=== PATIENT | male | born 1955 | race Caucasian/White ===

== ENCOUNTER 2018-04-23 09:44 | Inpatient (IN) | payer BC ==
[2018-04-13 11:41] VITALS: BMI 33.0
--- NOTE | 2018-04-13 15:53 | PAT Medication Instructions ---
Service Date Apr 13, 2018. Current Home Medication List Alprazolam (Xanax), 0.5 MG PO Q6H Calcium W/ Magnesium (Calcium/Magnesium), 1 TAB PO QAM Cholecalciferol (Vitamin D), 1 TAB PO QAM Famotidine (Pepcid), 20 MG PO BID Hydrochlorothiazide (Hydrochlorothiazide), 1 TAB PO QAM Latanoprost (Xalatan 0.005% Oph Bebe), 1 DROPS OPL HS Lisinopril (Zestril), 1 TAB PO QAM Netarsudil Dimesylate (Rhopressa), 2.5 ML OPL QAM Sertraline (Zoloft), 1 TAB PO HS Zaleplon (Sonata), 1 CAP PO HS Medication Instructions For Your Scheduled Surgery - Hold the following medications the morning of surgery: Calcium W/ Magnesium (Calcium/Magnesium), 1 TAB PO QAM Cholecalciferol (Vitamin D), 1 TAB PO QAM Hydrochlorothiazide (Hydrochlorothiazide), 1 TAB PO QAM Lisinopril (Zestril), 1 TAB PO QAM - Take the following medications the morning of surgery with a sip of water: Alprazolam (Xanax), 0.5 MG PO Q6H Famotidine (Pepcid), 20 MG PO BID Netarsudil Dimesylate (Rhopressa), 2.5 ML OPL QAM - Take the following medications as scheduled the night before surgery: Alprazolam (Xanax), 0.5 MG PO Q6H Famotidine (Pepcid), 20 MG PO BID Latanoprost (Xalatan 0.005% Oph Bebe), 1 DROPS OPL HS Sertraline (Zoloft), 1 TAB PO HS Zaleplon (Sonata), 1 CAP PO HS If you have any questions please call us at [phone] or [phone] or [phone]
[2018-04-14 09:53] VITALS: BMI 32.0
--- NOTE | 2018-04-14 10:45 | DIAGNOSTIC IMAGING REPORT ---
TWO VIEW CHEST CLINICAL HISTORY: Preoperative examination. FINDINGS: PA and lateral chest radiographs are obtained. No prior studies are available for comparison at the time of dictation. The cardiomediastinal silhouette is unremarkable noting atherosclerotic calcification of the thoracic aorta. There is bibasilar scarring/atelectasis, left greater than right. No airspace consolidation or pleural effusion is seen. There is no pneumothorax. The bony thorax appears intact. Degenerative change is noted in the thoracic spine. IMPRESSION: No active disease in the chest. Electronically signed by: Ray Brown M.D. 04/14/2018 10:43 AM Dictated Date/Time: 04/14/2018 10:42 AM
[2018-04-14 11:33] LABS: CALCIUM 9.7 mg/dl (8.5-10.1); CREATININE 1.09 mg/dl (0.60-1.40)
[2018-04-14 11:53] LABS: BASO % 0.4 %; BASO ABS # 0.03 K/uL (0-0.2); EOS % 1.2 %; EOS ABS # 0.09 K/uL (0-0.5); HEMATOCRIT 48.1 % (42-52); HEMOGLOBIN 17.3 g/dL (14.0-18.0); IG# 0.02 K/uL (0.00-0.02); LYMPH % 25.1 %; LYMPH ABS # 1.84 K/uL (1.2-3.4); MEAN CELL VOLUME 97.6 fL (80-100); MEAN CORPUSCULAR HEMOGLOBIN 35.1 pg (25-34); MONO % 9.1 %; MONO ABS # 0.67 K/uL (0.11-0.59); NEUT % 63.9 %; NEUT ABS # 4.69 K/uL (1.4-6.5); PLATELET COUNT 195 K/uL (130-400); RED CELL DISTRIBUTION WIDTH SD 46.6 fL (36.4-46.3); WHITE BLOOD COUNT 7.34 K/uL (4.8-10.8)
[~2018-04-23] VITALS: Ht 172.7 cm; Wt 96.8 kg
[2018-04-23] VITALS (9 sets, daily range): BP systolic 94–135; BP diastolic 59–85; PULSE 67–107; TEMP 36.2–36.8; O2SAT 90–96; Ht 172.7 cm; Wt 96.8 kg
[~2018-04-23 09:44] MED LIST: ALPR-411 PO; CALC500T68 PO; CEFAZOLIN IV 2,000 MG in SYRINGE 0 ML IV SCH; CHOL1TAB42 PO; FAMO20TA11 PO; HEPARIN SOD 5000 UNIT/0.5 ML CARP SQ SCH; HYDR12.55 PO; LACTATED RINGER'S 1000ML 1,000 ML IV SCH; LATA0.5S OPL; LISI40TA PO; NETA0.02 OPL; SERT-234 PO; SNT/10 PO
[2018-04-23] MEDS ORDERED: CEFAZOLIN SOD 2000MG/15 ML IV PUSH ONE (10:23)
--- NOTE | 2018-04-23 12:00 | History & Physical Bridge Note ---
H&P Re-Evaluation Bridge Note: I have examined the patient, reviewed the History & Physical and in the interval since the performance of the History & Physical I have noted the following changes of clinical significance: No changes noted
[2018-04-23] MEDS ORDERED: ONDANSETRON INJ 2 MG/ML 2 ML VIAL ONE (12:05)
[2018-04-23] MEDS ORDERED: MIDAZOLAM HCL 1 MG/ML 2ML VIAL ONE (12:05)
[2018-04-23] MEDS ORDERED: DEXAMETHASONE SOD INJ 4 MG/ML VIAL ONE (12:05)
[2018-04-23] MEDS ORDERED: PROPOFOL IV EMULSION 10 MG/ML 20 ML VIAL ONE (12:05)
[2018-04-23] MEDS ORDERED: ROCURONIUM BROMIDE 10 MG/ML 5 ML VIAL ONE (12:05)
[2018-04-23] MEDS ORDERED: GLYCOPYRROLATE INJ 0.2 MG/ML VIAL ONE (12:05)
[2018-04-23] MEDS ORDERED: LIDOCAINE HCL 2% 2 ML VIAL (20MG/ML) ONE (12:05)
[2018-04-23] MEDS ORDERED: NEOSTIGMINE METHYLSULFATE 5 MG/5 ML SYR ONE (12:05)
[2018-04-23] MEDS ORDERED: FENTANYL CITRATE INJ 50 MCG/1 ML 2 ML VIAL ONE ×4 (12:06→15:41)
[2018-04-23] MEDS ORDERED: BUPIVACAINE/EPINEPHRINE 0.5% MPF 1:200,000 30 ML VIAL ONE (12:28)
[2018-04-23] MEDS ORDERED: BUPIVACAINE 0.5 % 5 MG/1 ML PF 10ML VIAL ONE (12:39)
[2018-04-23] MEDS ORDERED: BELLADONNA/OPIUM SUPP 60 MG SUPP PR ONE ×2 (13:06→16:37)
[2018-04-23] MEDS ORDERED: ATROPINE SULFATE 0.1 MG/ML 5ML SYR IV PRN (13:15)
[2018-04-23] MEDS ORDERED: ONDANSETRON INJ 2 MG/ML 2 ML VIAL IV PRN ×2 (13:15→17:00)
[2018-04-23] MEDS ORDERED: HYDROmorphone INJ 2 MG/ML SYR/VIAL IV PRN (13:15)
[2018-04-23] MEDS ORDERED: KETOROLAC TROMETHAMINE 30 MG/ML VIAL IV. PRN ×2 (13:15→17:00)
[2018-04-23] MEDS ORDERED: LABETALOL HCL IV 5 MG/ML 20ML IV PRN (13:15)
[2018-04-23] MEDS ORDERED: HYDROmorphone INJ 2 MG/ML SYR/VIAL ONE (16:31)
[2018-04-23] MEDS ORDERED: SURGICEL ABSORB HEMOSTAT 2IN X 14IN TOP ONE (16:36)
[2018-04-23] MEDS ORDERED: MoRPHine SULFATE 4 MG/ML 1 ML CARP\\VIAL IV PRN (17:00)
--- NOTE | 2018-04-23 17:00 | [facility] Post Operative Brief Note ---
Immediate Operative Summary Operative Date Apr 23, 2018. Pre-Operative Diagnosis Prostate Cancer Post-Operative Diagnosis Prostate Cancer Procedure(s) Performed Robot Assisted, Laparoscopic Prostatectomy, with Pelvic Lymph Node Dissection Surgeon Dr. Allen Grease Maker Head Surgeon(s) Oly STEWART Estimated Blood Loss 150ml Findings Consistent with Post-Op Diagnosis Specimens Permanent Specimens A:Susana-Prostatic Fat Marked with 2 Clips B: Prostate and Seminal Vesicles C: Right Pelvic Lymph nodes 1 Clip D: Left Pelvic Lymph Nodes No Clips Drains NIECY; paul Anesthesia Type General Complication(s) none Disposition Accompanied Pt To Recover: yes Disposition: Recovery Room / PACU
--- NOTE | 2018-04-23 17:20 | [facility] Operative Report ---
Operative Report Operative Date Apr 23, 2018. Pre-Operative Diagnosis Prostate Cancer Post-Operative Diagnosis Prostate Cancer Procedure(s) Performed Robot Assisted, Laparoscopic Prostatectomy, with Pelvic Lymph Node Dissection Surgeon Dr. Allen Manager Van Surgeon(s) Oly STEWART Estimated Blood Loss 150ml Specimens Permanent Specimens A:Susana-Prostatic Fat Marked with 2 Clips B: Prostate and Seminal Vesicles C: Right Pelvic Lymph nodes 1 Clip D: Left Pelvic Lymph Nodes No Clips Drains NIECY; paul Anesthesia Type General Complication(s) none Disposition yes Recovery Room / PACU Description of Procedure The patient was identified in the preoperative holding area, appropriate informed consents were reviewed and completed, and he was transported to the operating suite. Subcutaneous heparin was administered in the pre-operative holding area. Upon arrival in the operating suite, he received appropriate antibiotics and general anesthesia. He was positioned in dorsal lithotomy, a B& O suppository was inserted after digital rectal exam, and he was prepped and draped in standard fashion. A Paul catheter was inserted in the sterile field. A Veress needle was passed per umbilicus with uniform insufflation of the abdomen to 15mmHg. He was placed in steep Trendelenburg position. A periumbilical incision was then made to accommodate a 12mm Visiport with 10mm 0degree laparoscope. Inspection of the abdomen was carried out, and there was no evidence of traumatic entry or injury secondary to the Veress needle. After confirming a clear anterior abdominal wall, ports were subsequently placed in standard robotic prostatectomy fashion without incident. To begin the robotic portion of the case, the left lateral aspect of the sigmoid was mobilized off of the left pelvic side wall to allow the pouch of Michael to be appropriately visualized. I then made an incision in the pouch of Michael, overlying the seminal vesicles. Both SVs as well as the ampullae of the vasa were entirely dissected , with the vasa transected 3cm from the prostate. The medial umbilical ligaments were then controlled with bipolar electrocautery just inferior to the umbilicus. Following cauterization, they were divided utilizing monopolar cautery. A peritoneal incision was carried from this location to the medial aspect of the internal inguinal rings bilaterally with care to avoid opening through the ring. This incision was concluded when the vas deferens was reached. Dissection of the bladder and prostate off of the posterior aspect of the pubic arch was completed allowing full visualization of the prostate. The fat overlying the prostate was removed en bloc and passed off the table as a specimen labeled "periprostatic fat". The endopelvic fascia was cleared during this portion of the procedure, and subsequently opened - first on the right and then the left. The incision through the endopelvic fascia began near the prostate-bladder junction and was carried to the apex with extreme care to preserve all lateral levator musculature as well as the periurethral musculature and sphincter complex. The puboprostatic ligaments were thinned slightly bilaterally before placing a 0-Vicryl figure of 8 stitch around the DVC. The lymph node dissection was then conducted. External iliac vessels were identified on the pelvic side wall. The packet of fat and lymphatic tissue that resides just under the iliac vein was elevated and off of the vein with a split and roll technique. The packet was dissected laterally to the circumflex vein and distally to the obturator nerve which was preserved. The proximal aspect of the packet was carried towards the bifurcation of the iliac vessels. A combination of monopolar and bipolar cautery were used to assist with control. Clips were placed at the proximal and distal aspects of the packet prior to transection. After completing the dissection on both sides, the packets were collected and passed off of the table as specimens labeled "pelvic lymph nodes". My attention then returned to the prostate, with identification of the bladder neck aided by gentle traction on the Paul catheter and lateral to medial pressure at the presumed level of the bladder neck with the robotic instruments. An anterior cystotomy was made, the Paul balloon deflated and the catheter guided through the incision to allow anterior retraction. I attempted to preserve maximal bladder neck musculature as I circumferentially dissected around the bladder neck. After incision through the posterior aspect of the mucosa, the dissection was carried through detrusor muscle until the bilateral ampullae of the vasa were identified. The previously dissected vasa and SVs were brought through the incision and used to elevated the prostate anteriorly. A posterior plane behind the prostate was then developed - splitting Denonvilliers's fascia. This dissection was carried as far as possible towards the apex as well as far as possible laterally. An incision in the lateral prostatic fascia was then made bilaterally to facilitate control of the vascular pedicles. The pedicles were each controlled with a vessel sealer device. The neurovascular bundles were identified, however , given his high grade disease, a very conservative plane of dissection was chosen on the lateral aspects of the prostate. The apical attachments of the prostate were remaining at that stage. The DVC was divided with bipolar electrocautery. Susana-prostatic tissue incised with sharp dissection and monopolar cautery. Maximal urethral length was preserved before dividing the urethra sharply. The prostate was entirely freed at that point, and collected in an EndoCatch bag before being moved out of the field of vision. Hemostasis was confirmed and anastomosis of the bladder and urethra was completed utilizing a double armed V- Lock stitch. A new Paul catheter was inserted and the anastomosis tested with irrigation. There was no evidence of leak. FloSeal coagulant was placed around the anastomosis. A Carla stitch was placed to create a functional marsupialization of the lymph node dissection into the peritoneum. A NIECY was placed via the left lateral most robotic port. The robot was undocked, the specimen extracted through expansion of the susana- umbilical camera port. The fascia was closed with a series of 0-PDS figure of 8 stitches. The right melter assistant port was closed in two layers - with a figure of 8 0-Vicryl to reapproximate the fascia followed by 4-0 Monocryl to close the skin. Monocryl was used to close all other skin incisions. All wounds were dressed with Dermabond. The case was concluded and the patient taken to the PACU in stable condition. Of note, TERRY Joy was present and scrubbed throughout, serving as my melter assistant for the entire case. I attest to the content of the Intraoperative Record and any orders documented therein. Any exceptions are noted below.
[2018-04-23 17:26] LABS: HEMATOCRIT 45.5 % (42-52); HEMOGLOBIN 16.1 g/dL (14.0-18.0); MEAN CELL VOLUME 96.6 fL (80-100); MEAN CORPUSCULAR HEMOGLOBIN 34.2 pg (25-34); MEAN PLATELET VOLUME 10.4 fL (7.4-10.4); PLATELET COUNT 173 K/uL (130-400); RED CELL DISTRIBUTION WIDTH CV 12.6 % (11.5-14.5); RED CELL DISTRIBUTION WIDTH SD 44.5 fL (36.4-46.3); WHITE BLOOD COUNT 13.91 K/uL (4.8-10.8)
[2018-04-23 17:48] LABS: CALCIUM 8.3 mg/dl (8.5-10.1); CREATININE 1.13 mg/dl (0.60-1.40)
[2018-04-23 17:55] LABS: BASO % 0.1 %; BASO ABS # 0.02 K/uL (0-0.2); EOS % 0.1 %; EOS ABS # 0.01 K/uL (0-0.5); IG# 0.02 K/uL (0.00-0.02); LYMPH % 7.4 %; LYMPH ABS # 1.03 K/uL (1.2-3.4); MEAN CORPUSCULAR HGB CONC 35.4 g/dl (32-36); MONO % 1.2 %; MONO ABS # 0.17 K/uL (0.11-0.59); NEUT % 91.1 %; NEUT ABS # 12.66 K/uL (1.4-6.5)
--- NOTE | 2018-04-23 18:01 | Anesthesiology Progress Note ---
Anesthesia Post Op Note Date & Time Apr 23, 2018 at 18:00 Vital Signs Pain Intensity: 2 Vital Signs Past 12 Hours Date Time Temp Pulse Resp B/P (MAP) Pulse Ox O2 Delivery O2 Flow Rate FiO2 04/23/18 17:45 99 13 127/88 94 Nasal Cannula 4 04/23/18 17:35 94 18 127/86 95 Nasal Cannula 4 04/23/18 17:25 97 12 135/92 94 Oxymask 10 04/23/18 17:15 97 13 148/91 94 Oxymask 10 04/23/18 17:05 36.5 103 12 133/75 94 Oxymask 10 04/23/18 10:10 36.4 67 20 124/85 (98) 95 Room Air Notes Mental Status: alert / awake / arousable, participated in evaluation Pt Amnestic to Procedure: Yes Nausea / Vomiting: adequately controlled Pain: adequately controlled Airway Patency, RR, SpO2: stable & adequate BP & HR: stable & adequate Hydration State: stable & adequate Anesthetic Complications: no major complications apparent
[2018-04-23] MEDS: LACTATED RINGER'S 1000ML 1,000 ML IV SCH (19:46)
[2018-04-23] MEDS: ALPRAZOLAM 0.5 MG TAB PO SCH ×2 (19:46→23:39)
[2018-04-23] MEDS: LATANOPROST 0.005% OP SOLN 2.5 ML BTL OPL SCH (21:14)
[2018-04-23] MEDS: LISINOPRIL 40 MG TAB PO SCH (21:16)
[2018-04-23] MEDS: SERTRALINE HCL 100 MG TAB PO SCH (21:16)
[2018-04-23] MEDS: DOCUSATE SODIUM 100 MG CAP PO SCH (21:16)
[2018-04-23] MEDS: FAMOTIDINE 20 MG TAB PO SCH (21:16)
[2018-04-23] MEDS: ZALEPLON 5 MG CAP PO SCH (21:39)
[2018-04-23] MEDS: HEPARIN SOD 5000 UNIT/0.5 ML CARP SQ SCH (21:43)
[2018-04-23] MEDS: CEFAZOLIN IV 2,000 MG in SYRINGE 0 ML IV SCH (21:46)
[2018-04-23] MEDS: ACETAMINOPHEN 325 MG TAB PO PRN (23:40)
[2018-04-23] MEDS ORDERED: PNEUMOCOCCAL POLYSACCHARIDES 25 MCG/0.5 ML VIAL/SYR IM. ONE (23:45)
[2018-04-23] MEDS ORDERED: PNEUMOCOCCAL ADMINISTRATION CHARGE ONE (23:45)
[2018-04-24] VITALS (8 sets, daily range): BP systolic 92–110; BP diastolic 56–69; PULSE 70–81; TEMP 36.4–36.9; O2SAT 90–92
[2018-04-24] MEDS: LACTATED RINGER'S 1000ML 1,000 ML IV SCH ×3 (05:13→19:14)
[2018-04-24] MEDS: CEFAZOLIN IV 2,000 MG in SYRINGE 0 ML IV SCH (05:56)
[2018-04-24] MEDS: ALPRAZOLAM 0.5 MG TAB PO SCH ×4 (06:00→23:57)
[2018-04-24] MEDS: ACETAMINOPHEN/CODEINE 300/30MG TAB PO PRN ×4 (06:08→20:19)
[2018-04-24 06:11] LABS: BASO % 0.1 %; BASO ABS # 0.01 K/uL (0-0.2); EOS % 0.2 %; EOS ABS # 0.02 K/uL (0-0.5); HEMATOCRIT 39.8 % (42-52); IG# 0.02 K/uL (0.00-0.02); LYMPH % 14.3 %; LYMPH ABS # 1.45 K/uL (1.2-3.4); MEAN CELL VOLUME 97.1 fL (80-100); MEAN CORPUSCULAR HEMOGLOBIN 34.1 pg (25-34); MEAN CORPUSCULAR HGB CONC 35.2 g/dl (32-36); MEAN PLATELET VOLUME 10.5 fL (7.4-10.4); MONO % 10.9 %; NEUT % 74.3 %; NEUT ABS # 7.51 K/uL (1.4-6.5); PLATELET COUNT 164 K/uL (130-400); RED CELL DISTRIBUTION WIDTH CV 12.8 % (11.5-14.5); RED CELL DISTRIBUTION WIDTH SD 45.7 fL (36.4-46.3); WHITE BLOOD COUNT 10.11 K/uL (4.8-10.8)
[2018-04-24 06:37] LABS: CALCIUM 8.1 mg/dl (8.5-10.1); CREATININE 0.84 mg/dl (0.60-1.40); POTASSIUM 3.9 mmol/L (3.5-5.1)
[2018-04-24] MEDS ORDERED: COUGH DROP (SUGAR FREE) LOZ 24 LOZ/1 BOX LOZ PRN (07:15)
--- NOTE | 2018-04-24 07:52 | Progress Note ---
Subjective Date of Service: Apr 24, 2018. Subjective Pt evaluation today including: conversation w/ patient, physical exam, chart review, lab review Voiding: paul catheter in place progressing extremely well -minimal pain - urine clear - has not ambulated yet - no nausea - some mild flatus Review of Systems Constitutional: No see HPI, No fever, No chills, No sweats, No weight loss, No weakness, No fatigue, No problem reported Respiratory: No see HPI, No cough, No sputum, No wheezing, No shortness of breath, No dyspnea on exertion, No dyspnea at rest, No hemoptysis, No problem reported Abdomen: + pain (post operative) Male : No see HPI, No dysuria, No urinary frequency, No incontinence, No nocturia more than once/night, No slowing stream, No hematuria, No sexual dysfunction, No problem reported Objective Vital Signs Date Time Temp Pulse Resp B/P (MAP) Pulse Ox O2 Delivery O2 Flow Rate FiO2 04/24/18 07:20 36.5 75 18 98/63 (75) 90 Room Air 04/24/18 04:40 36.4 81 17 92/56 (68) 91 Room Air 04/23/18 23:35 Room Air 04/23/18 22:56 36.7 94 16 94/59 (71) 90 Room Air 04/23/18 21:21 36.5 104 16 119/78 (92) 92 Room Air 04/23/18 20:10 36.8 107 16 112/67 (82) 94 Nasal Cannula 2.0 04/23/18 19:52 36.2 90 16 116/71 (86) 93 Nasal Cannula 2.0 04/23/18 19:14 36.6 90 16 123/77 (92) 93 Nasal Cannula 2.0 04/23/18 18:40 36.5 94 16 133/81 (98) 94 Nasal Cannula 2.0 04/23/18 18:10 96 Nasal Cannula 2.0 04/23/18 18:10 96 Nasal Cannula 2.0 04/23/18 18:09 36.5 97 16 135/74 (94) 96 Nasal Cannula 2.0 04/23/18 17:55 36.7 94 15 139/88 94 Nasal Cannula 4 04/23/18 17:45 99 13 127/88 94 Nasal Cannula 4 04/23/18 17:35 94 18 127/86 95 Nasal Cannula 4 04/23/18 17:25 97 12 135/92 94 Oxymask 10 04/23/18 17:15 97 13 148/91 94 Oxymask 10 04/23/18 17:05 36.5 103 12 133/75 94 Oxymask 10 04/23/18 10:10 36.4 67 20 124/85 (98) 95 Room Air Physical Exam General Appearance: WD/WN, no apparent distress Eyes: normal inspection ENT: hearing grossly normal Neck: no adenopathy Abdomen: soft (incisions appropriate. NIECY serosang, paul clear) Extremities: non-tender Neurologic/Psychiatric: alert, normal mood/affect, oriented x 3 Laboratory Results Last 24 Hours Test 04/23/18 17:12 04/24/18 05:45 White Blood Count 13.91 K/uL 10.11 K/uL Red Blood Count 4.71 M/uL 4.10 M/uL Hemoglobin 16.1 g/dL 14.0 g/dL Hematocrit 45.5 % 39.8 % Mean Corpuscular Volume 96.6 fL 97.1 fL Mean Corpuscular Hemoglobin 34.2 pg 34.1 pg Mean Corpuscular Hemoglobin Concent 35.4 g/dl 35.2 g/dl Platelet Count 173 K/uL 164 K/uL Mean Platelet Volume 10.4 fL 10.5 fL Neutrophils (%) (Auto) 91.1 % 74.3 % Lymphocytes (%) (Auto) 7.4 % 14.3 % Monocytes (%) (Auto) 1.2 % 10.9 % Eosinophils (%) (Auto) 0.1 % 0.2 % Basophils (%) (Auto) 0.1 % 0.1 % Neutrophils # (Auto) 12.66 K/uL 7.51 K/uL Lymphocytes # (Auto) 1.03 K/uL 1.45 K/uL Monocytes # (Auto) 0.17 K/uL 1.10 K/uL Eosinophils # (Auto) 0.01 K/uL 0.02 K/uL Basophils # (Auto) 0.02 K/uL 0.01 K/uL RDW Standard Deviation 44.5 fL 45.7 fL RDW Coefficient of Variation 12.6 % 12.8 % Immature Granulocyte % (Auto) 0.1 % 0.2 % Immature Granulocyte # (Auto) 0.02 K/uL 0.02 K/uL Prothrombin Time 11.0 SECONDS Prothromb Time International Ratio 1.0 Sodium Level 137 mmol/L 140 mmol/L Potassium Level 4.0 mmol/L 3.9 mmol/L Chloride Level 105 mmol/L 106 mmol/L Carbon Dioxide Level 26 mmol/L 28 mmol/L Anion Gap 6.0 mmol/L 6.0 mmol/L Blood Urea Nitrogen 14 mg/dl 11 mg/dl Creatinine 1.13 mg/dl 0.84 mg/dl Est Creatinine Clear Calc Drug Dose 73.5 ml/min 98.9 ml/min Estimated GFR () 78.6 106.5 Estimated GFR (Non- 67.8 91.9 BUN/Creatinine Ratio 12.6 12.7 Random Glucose 132 mg/dl 108 mg/dl Calcium Level 8.3 mg/dl 8.1 mg/dl Assessment and Plan POD#1 s/p RALP with LND - progressing very well - ambulate this AM - clear liquids - will determine d/c dispo later today
[2018-04-24] MEDS: RHOPRESSA OP SCH (08:34)
[2018-04-24] MEDS: FAMOTIDINE 20 MG TAB PO SCH ×2 (08:35→20:49)
[2018-04-24] MEDS: DOCUSATE SODIUM 100 MG CAP PO SCH ×2 (08:35→20:49)
[2018-04-24] MEDS: CALCIUM 600MG + VIT D 400 IU TAB PO SCH (08:35)
[2018-04-24] MEDS: CHOLECALCIFEROL 1000 INTER.UNIT TAB PO SCH (08:36)
[2018-04-24] MEDS: HYDROCHLOROTHIAZIDE 25 MG TAB PO SCH (08:36)
[2018-04-24] MEDS: HEPARIN SOD 5000 UNIT/0.5 ML CARP SQ SCH ×2 (08:43→20:59)
[2018-04-24] MEDS ORDERED: RHOPRESSA OP SCH (09:00)
[2018-04-24] MEDS ORDERED: DTR/2 PO (10:00)
[2018-04-24] MEDS ORDERED: ACET300T3 PO (10:00)
[2018-04-24] MEDS ORDERED: SULF800T23 PO (10:00)
--- NOTE | 2018-04-24 10:05 | Discharge Instructions ---
Discharge Instructions Date of Service Apr 24, 2018. Admission Reason for Admission: Prostate Cancer Discharge Discharge Diagnosis / Problem: Prostate Cancer Discharge Goals Goal(s): Decrease discomfort, Improve function, Increase independence, Improve disease control, Prevent Disease Progression Activity Recommendations Activity Limitations: per Instructions/Follow-up section Lifting Limitations: no more than 25 pounds Exercise/Sports Limitations: until after follow-up appointment May Resume Sexual Activity: after follow-up appointment Shower/Bathe: tomorrow Driving or Machine Use: resume 1 day after discharge Please remain active (walking, etc). Please avoid lifting anything over ~25lbs until you are 6 weeks out from surgery. You may drive when you are off of pain medications and you feel that you can safely control your vehicle. It may take several days or longer for your normal bowel function to resume. Please use stool softeners (colace/senna/metamucil - all available over the counter) to avoid constipation - this is particularly important if you are using pain medications. Please gradually return to your normal diet, but do not feel that it is necessary to over eat for the first several days after discharge. It is normal to have some urine leak around the catheter. You may also have some blood around the catheter. We recommend washing the catheter with warm, soapy water several times per day to avoid the build up of debris at the tip of the penis. If necessary, KY jelly or equivalent can be applied to the tip of the penis to limit the irritation from the catheter. . Current Hospital Diet Patient's current hospital diet: Clear Liquid Diet Discharge Diet Recommended Diet: Regular Diet Procedures Procedures Performed: Robot Assisted, Laparoscopic Prostatectomy, with Pelvic Lymph Node Dissection Pending Studies Studies pending at discharge: no Medical Emergencies . Who to Call and When: Medical Emergencies: If at any time you feel your situation is an emergency, please call 911 immediately. . Non-Emergent Contact Non-Emergency issues call your: Urologist Call Non-Emergent contact if: you have a fever, temperature is above 101.5, your pain is not controlled, your pain is worsening . . "Provider Documentation" section prepared by Renato Walter. . [place] Drug Monitoring Program Search Results: patient reviewed within database (Numerous prescriptions in the past, however, the current Rx is necessary)
[2018-04-24] MEDS: LATANOPROST 0.005% OP SOLN 2.5 ML BTL OPL SCH (20:48)
[2018-04-24] MEDS: LISINOPRIL 40 MG TAB PO SCH (20:49)
[2018-04-24] MEDS: SERTRALINE HCL 100 MG TAB PO SCH (20:49)
[2018-04-24] MEDS: ZALEPLON 5 MG CAP PO SCH (20:59)
[2018-04-25] MEDS: LACTATED RINGER'S 1000ML 1,000 ML IV SCH ×3 (01:39→11:15)
[2018-04-25] MEDS: ACETAMINOPHEN/CODEINE 300/30MG TAB PO PRN ×2 (02:30→12:48)
[2018-04-25] MEDS: ALPRAZOLAM 0.5 MG TAB PO SCH ×2 (05:54→12:00)
[2018-04-25] MEDS: ACETAMINOPHEN 325 MG TAB PO PRN (05:56)
[2018-04-25 07:22] VITALS: BP 119/76; PULSE 73; TEMP 36.9; O2SAT 92
[2018-04-25 07:54] LABS: BASO % 0.2 %; BASO ABS # 0.01 K/uL (0-0.2); EOS % 1.4 %; EOS ABS # 0.09 K/uL (0-0.5); HEMATOCRIT 39.4 % (42-52); HEMOGLOBIN 13.5 g/dL (14.0-18.0); IG# 0.01 K/uL (0.00-0.02); LYMPH % 27.9 %; LYMPH ABS # 1.78 K/uL (1.2-3.4); MEAN CELL VOLUME 99.2 fL (80-100); MEAN CORPUSCULAR HGB CONC 34.3 g/dl (32-36); MEAN PLATELET VOLUME 10.5 fL (7.4-10.4); MONO ABS # 0.83 K/uL (0.11-0.59); NEUT % 57.3 %; NEUT ABS # 3.65 K/uL (1.4-6.5); PLATELET COUNT 138 K/uL (130-400); RED CELL DISTRIBUTION WIDTH CV 12.8 % (11.5-14.5); RED CELL DISTRIBUTION WIDTH SD 46.8 fL (36.4-46.3); WHITE BLOOD COUNT 6.37 K/uL (4.8-10.8)
[2018-04-25 08:22] LABS: CALCIUM 8.3 mg/dl (8.5-10.1); CREATININE 0.93 mg/dl (0.60-1.40)
--- NOTE | 2018-04-25 09:13 | Progress Note ---
Subjective Date of Service: Apr 25, 2018. Subjective Pt evaluation today including: conversation w/ patient, physical exam, chart review, lab review Voiding: paul catheter in place Minor bladder spasms overnight, no other Ambulating, pain well controlled, tolerating diet Review of Systems Constitutional: No see HPI, No fever, No chills, No sweats, No weight loss, No weakness, No fatigue, No problem reported ENT: No see HPI, No hearing loss, No unusual epistaxis, No nasal symptoms, No sore throat, No tinnitus, No dental problems, No trouble swallowing, No problem reported Abdomen: No see HPI, No pain, No nausea, No vomiting, No diarrhea, No constipation, No GI bleeding, No problem reported Musculoskeletal: No see HPI, No joint pain, No muscle pain, No swelling, No calf pain, No problem reported Objective Vital Signs Date Time Temp Pulse Resp B/P (MAP) Pulse Ox O2 Delivery O2 Flow Rate FiO2 04/25/18 07:22 36.9 73 16 119/76 (90) 92 Room Air 04/24/18 23:50 Room Air 04/24/18 22:53 36.9 77 16 110/66 (81) 90 Room Air 04/24/18 15:28 Room Air 04/24/18 14:52 36.8 79 16 105/67 (80) 90 Room Air 04/24/18 11:45 36.8 78 15 102/68 (79) 92 Room Air 04/24/18 10:41 92 Room Air 04/24/18 10:00 102/69 (80) 99/65 (76) 92/62 (72) Physical Exam General Appearance: no apparent distress Eyes: normal inspection ENT: hearing grossly normal Neck: no adenopathy Abdomen: non tender (Incisions healing appropriately), soft Extremities: no pedal edema Neurologic/Psychiatric: alert, normal mood/affect, oriented x 3 Laboratory Results Last 24 Hours Test 04/25/18 07:19 White Blood Count 6.37 K/uL Red Blood Count 3.97 M/uL Hemoglobin 13.5 g/dL Hematocrit 39.4 % Mean Corpuscular Volume 99.2 fL Mean Corpuscular Hemoglobin 34.0 pg Mean Corpuscular Hemoglobin Concent 34.3 g/dl Platelet Count 138 K/uL Mean Platelet Volume 10.5 fL Neutrophils (%) (Auto) 57.3 % Lymphocytes (%) (Auto) 27.9 % Monocytes (%) (Auto) 13.0 % Eosinophils (%) (Auto) 1.4 % Basophils (%) (Auto) 0.2 % Neutrophils # (Auto) 3.65 K/uL Lymphocytes # (Auto) 1.78 K/uL Monocytes # (Auto) 0.83 K/uL Eosinophils # (Auto) 0.09 K/uL Basophils # (Auto) 0.01 K/uL RDW Standard Deviation 46.8 fL RDW Coefficient of Variation 12.8 % Immature Granulocyte % (Auto) 0.2 % Immature Granulocyte # (Auto) 0.01 K/uL Sodium Level 142 mmol/L Potassium Level 4.0 mmol/L Chloride Level 106 mmol/L Carbon Dioxide Level 31 mmol/L Anion Gap 5.0 mmol/L Blood Urea Nitrogen 10 mg/dl Creatinine 0.93 mg/dl Est Creatinine Clear Calc Drug Dose 89.3 ml/min Estimated GFR () 99.5 Estimated GFR (Non- 85.8 BUN/Creatinine Ratio 10.7 Random Glucose 89 mg/dl Calcium Level 8.3 mg/dl Assessment and Plan POD#2 s/p RALP with LND -Hep-Lock IV -[facility]
--- NOTE | 2018-04-25 09:15 | Discharge Summary ---
Discharge Summary Date of Service Apr 25, 2018. Admission Date/Reason Apr 23, 2018 at 16:54 Prostate Cancer. Discharge Date/Disposition Apr 25, 2018 Home Diagnosis Principal Diagnosis: Prostate cancer Procedure(s) Performed Robotic prostatectomy with lymph node dissection Medication Reconciliation New Medications: Acetaminophen/Codeine (Tylenol W/Codeine #3) 300 Mg/30 Mg Tab 2 TAB PO Q6 PRN for Pain, #30 TAB Sulfamethoxazole-Trimethoprim (Bactrim Ds 800MG/160MG) 1 Tab Tab 1 TAB PO BID, #6 TAB Tolterodine Tartrate (Detrol) 2 Mg Tab 2 MG PO BID, #10 TAB Continued Medications: Alprazolam (Xanax) 0.5 Mg Tab 0.5 MG PO Q6H for Anxiety, TAB Calcium W/ Magnesium (Calcium/Magnesium) 1 Tab Tab 1 TAB PO QAM Cholecalciferol (Vitamin D) 5,000 Unit Tab 1 TAB PO QAM Famotidine (Pepcid) 20 Mg Tab 20 MG PO BID, TAB Hydrochlorothiazide (Hydrochlorothiazide) 12.5 Mg Tab 1 TAB PO QAM for 30 Days, #30 TAB 5 Refills Latanoprost (Xalatan 0.005% Oph Bebe) 0.005 % Bebe 1 DROPS OPL HS, #7.5 ML 3 Refills Lisinopril (Zestril) 40 Mg Tab 1 TAB PO QPM for 30 Days, TAB 5 Refills Netarsudil Dimesylate (Rhopressa) 0.02 % Bebe 2.5 ML OPL QAM Sertraline (Zoloft) 100 Mg Tab 1 TAB PO HS for 90 Days, TAB 1 Refill Zaleplon (Sonata) 10 Mg Cap 1 CAP PO HS for PRN for 30 Days, #30 CAP 1 Refill Admission Physical Exam As per Admitting History & Physical. Hospital Course Patient admitted for robotic prostatectomy with extended lymph node dissection, details of this procedure as dictated previously in the operative report, however in summary he tolerated the procedure extremely well. He was transferred to the floor in stable condition. He ambulated on the evening of postoperative day 0. His pain is well controlled . He felt relatively well in the morning of postoperative day #1. Given the late operative time, however, he we elected to keep him overnight and continue to progress extremely well into the morning of postoperative day 2. By the morning of postoperative day 2 he had improved further. His urine is clear. His labs are stable. His NIECY had been removed. He was tolerating a diet. He was ambulatory. Subsequently discharged home in stable condition. Discharge Instructions Please refer to the electronic Patient Visit Report (Discharge Instructions) for additional information.
[2018-04-25] MEDS: RHOPRESSA OP SCH (09:30)
[2018-04-25] MEDS: FAMOTIDINE 20 MG TAB PO SCH (09:30)
[2018-04-25] MEDS: CALCIUM 600MG + VIT D 400 IU TAB PO SCH (09:31)
[2018-04-25] MEDS: CHOLECALCIFEROL 1000 INTER.UNIT TAB PO SCH (09:31)
[2018-04-25] MEDS: HYDROCHLOROTHIAZIDE 25 MG TAB PO SCH (09:31)
[2018-04-25] MEDS: DOCUSATE SODIUM 100 MG CAP PO SCH (09:31)
[2018-04-25] MEDS: HEPARIN SOD 5000 UNIT/0.5 ML CARP SQ SCH (09:36)
[2018-04-25 11:04] VITALS: BP 119/76; PULSE 73; TEMP 36.9; O2SAT 92
== END 2018-04-25 13:15 | disposition home or self-care (01) | DRG 708 ==
LOC: C.ACU 09:44 → C.MSN 16:54 → ENRESERV 17:27
PROVIDERS: ADMIT Urology; ATTEND Urology
PROC: 0VT34ZZ Resection of Bilateral Seminal Vesicles, Percutaneous Endoscopic Approach (ICD-10-PCS; principal; 2018-04-23 12:00)
PROC: 8E0W4CZ Robotic Assisted Procedure of Trunk Region, Percutaneous Endoscopic Approach (ICD-10-PCS; principal; 2018-04-23 12:00)
PROC: 0VT04ZZ Resection of Prostate, Percutaneous Endoscopic Approach (ICD-10-PCS; principal; 2018-04-23 12:00)
PROC: 07BC4ZX Excision of Pelvis Lymphatic, Percutaneous Endoscopic Approach, Diagnostic (ICD-10-PCS; principal; 2018-04-23 12:00)
DX: C61 Malignant neoplasm of prostate (principal); I10 Essential (primary) hypertension